=== PATIENT | male | born 1990 | race Caucasian/White ===

== ENCOUNTER 2021-09-05 10:52 | Emergency (ER) | payer OTHER, SELFPAY ==
[2021-09-05 11:10] VITALS: BP 160/108; PULSE 76; RESP 18; TEMP 36.8; O2SAT 100; BMI 43.6
--- NOTE | 2021-09-05 11:39 | HMH.EDUTC ---
[facility] [place]ression: Elevated blood pressure reading Disposition: Home, Self-Care Condition on Discharge: Good Instructions: Treatments for High Blood Pressure: More Than Just Taking a Pill, Recommendations to Help Prevent High Blood Pressure, Hypertension (Alternative Therapy) Additional Instructions: Eat a low salt low fat diet this may help with weight loss and lowering of blood pressure Return if needed Follow up with Family Doctor if no improvement or immediately if any worsening of symptoms Straight to ER if any life threatening symptoms Call Doctor office daily to see if they have had any new patient cancelations Prescriptions: hydroCHLOROthiazide [HCTZ 12.5mg cap] 12.5 mg PO DAILY 7 Days #14 cap Transmission Status: Received by [id number] Referrals: Provider,Suki, [Primary Care Provider] - Carlin Wells JR, MD [Referring] - As needed (follow up as scheduled) Time of Disposition: 14:38 Medical Decision Making - Sundeep Inquiry Pt receiving controlled substance: No Sundeep was queried for this patient: No Vital Signs: 09/05/21 11:10 09/05/21 14:40 Temperature 98.3 F 98.3 F Temperature Source Oral Pulse Rate 76 Pulse Rate [Right Brachial] 76 Respiratory Rate 18 18 Blood Pressure 160/108 H Blood Pressure [Right Arm] 160/108 H Blood Pressure Mean [Right Arm] 125 Blood Pressure Source [Right Arm] Manual Cuff/ Auscultation Blood Pressure Position [Right Arm] Sitting 02 Sat by Pulse Oximetry 100 Oxygen Delivery Method Room Air - Lab Data Lab Results 09/05/21 13:05: WBC 9.1, RBC 5.17, Hgb 14.8, Hct 43.9, MCV 84.9, MCH 28.6, MCHC 33.7, RDW 13.7, Plt Count 400, MPV 8.2, Neut % (Auto) 74.7, Lymph % (Auto) 15.9, [place] % (Auto) 5.2, Eos % (Auto) 3.4, Baso % (Auto) 0.9, Neut # (Auto) 6.8, Lymph # (Auto) 1.4, [place] # (Auto) 0.5, Eos # (Auto) 0.3, Baso # (Auto) 0.1 09/05/21 13:05: Sodium 142, Potassium 3.6, Chloride 107, Carbon Dioxide 26, Anion Gap 12.6, BUN 13, Creatinine 0.70, Estimated Creat Clear 181, Estimated GFR 133, Est GFR ( Amer) 161, Glucose 98, Calcium 9.1, Total Bilirubin 0.3, AST 33, ALT 28, Alkaline Phosphatase 94, Troponin I < 0.01, Total Protein 7.5, Albumin 4.4, Globulin 3.1, Albumin/Globulin Ratio 1.4 Result diagrams: 09/05/21 13:05 09/05/21 13:05 Orders (Tests/Meds): ED MEDICATIONS Discontinued Medications Generic Name Dose Route Start Last Admin Trade Name Yolie PRN Reason Stop Dose Admin Acetaminophen 650 mg 09/05/21 14:11 09/05/21 14:16 Acetaminophen 325mg Tab PO 09/05/21 14:12 650 mg ONCE ONE Administration - Radiology Data #1 Image(s): Chest Image Reviewed: Yes I have reviewed radiologist's interpretation No acute findings. - ECG Data Tracing #1 I reviewed this ECG and interpreted as documented below: ECG initial impression date: 09/05/21 ECG initial impression time: 12:20 Normal Sinus Rhythm: Yes Additional Comments: EKG discussed and reviewed by ED physician Medical Decision Narrative: Patient having symptomatic elevation of blood pressure with no previous diagnosis or treatment reports been watching blood pressure for the last couple of weeks States that last night he had blurry vision and headache and they checked his blood pressure and it was elevated and he called PCP this morning when he was feeling swimmy headed and having headache and they told him to come here Due to patient symptoms with HTN patient discussed with patient and recommended that patient be transferred to the ED for further evaluation and treatment and patient agreed Called ED spoke with Paola Dunham RN and report given no available beds at this time Patient will be moved when room available Patient resting on exam table IV established and EKG done and given to ER physician patient still complaining of headache and still awaiting room assignment While waiting on bed in the ED patient wanting to get a shot for his hea
--- NOTE | 2021-09-05 12:20 | ECG_ITS ---
APPROVED REPORT Exam: Resting ECG HR:80 bpm ECG Measurements Heart Rate 80 AXES TN 178 P 41 QRSd 100 QRS 13 QT 392 T 20 QTc 452 Conclusion Normal sinus rhythm Normal ECG Electronically signed by : Cooper Wills MD 09/05/2021 20:32:27
--- NOTE | 2021-09-05 12:26 | XR_ITS ---
PROCEDURE: XR CHEST 2V CLINICAL HISTORY: HIGH BP COMPARISON: No exams were available for comparison FINDINGS: The cardiomediastinal silhouette and pulmonary vascularity are within normal limits. The lungs are clear without infiltrates, suspicious nodules, or pleural effusions. Calcified granuloma in the lingula. Mild degenerative changes in the thoracic spine. IMPRESSION: No acute findings. Dictated by: Dayne Cerda MD 09/05/2021 12:50 Dayne Cerda MD in [place] 09/05/2021 12:50
[2021-09-05 13:25] LABS: Basophils # 0.1 K/mm3 (0-0.2); Basophils % 0.9 % (0.1-2.0); Eosinophils # 0.3 K/mm3 (0.0-0.4); Eosinophils % 3.4 % (0.1-12.0); Hematocrit 43.9 % (42.0-52.0); Hemoglobin 14.8 g/dL (14.1-18.0); Lymphocytes # 1.4 K/mm3 (0.7-4.5); Lymphocytes % 15.9 % (10-50); Mean Corpuscular HGB Conc 33.7 g/dL (31.8-35.4); Mean Corpuscular Hemoglobin 28.6 pg (27.0-31.2); Mean Corpuscular Volume 84.9 fl (80-94); Mean Platelet Volume 8.2 fl (7.4-10.4); Monocytes # 0.5 K/mm3 (0.1-1.0); Monocytes % 5.2 % (1.7-9.3); Neutrophils # 6.8 K/mm3 (1.8-7.8); Neutrophils % 74.7 % (37.0-80.0); Platelet Count 400 K/mm3 (142-424); Red Blood Count 5.17 M/mm3 (4.60-6.20); Red Cell Distribution Width 13.7 % (11.5-17.5); White Blood Count 9.1 K/mm3 (4.8-10.8)
[2021-09-05 13:26] LABS: Chloride 107 mmol/L (98-107); Potassium 3.6 mmoL/L (3.5-5.1); Sodium 142 mmol/L (136-145)
[2021-09-05 13:29] LABS: Alanine Aminotransferase 28 U/L (12-78); Albumin Level 4.4 g/dl (3.5-5.0); Albumin/Globulin Ratio 1.4 (1.1-1.8); Alkaline Phosphatase 94 U/L (38-126); Anion Gap 12.6 mEq/L (5-15); Aspartate Amino Transferase 33 U/L (17-59); Bilirubin,Total 0.3 mg/dl (0.2-1.3); Blood Urea Nitrogen 13 mg/dl (9-20); Carbon Dioxide 26 mmol/L (22.0-30.0); Creatinine Clearance Estimated 181 mL/min (50-200); Estimated Glomerular Filt Rate 133 ml/min (>60); GFR (African American) 161 ML/MIN (>60); Globulin 3.1 g/dL (1.3-3.2); Total Protein,Serum 7.5 g/dl (6.3-8.2)
[2021-09-05 13:30] LABS: Calcium 9.1 mg/dl (8.4-10.2); Glucose 98 mg/dl (74-100)
[2021-09-05 13:50] LABS: Troponin I < 0.01 ng/ml (0.00-0.034)
[2021-09-05 14:40] VITALS: BP 148/96; PULSE 76; RESP 18; TEMP 36.8; O2SAT 100
== END 2021-09-05 14:50 | disposition home or self-care (01) ==
PROVIDERS: Emergency Provider Nurse Practitioner
DX: R51.9 Headache, unspecified (principal); R03.0 Elevated blood-pressure reading, without diagnosis of hypertension
CPT/HCPCS: 71046; 80053; 84484; 85025; 93005; 99202; G0463

== ENCOUNTER 2022-01-07 09:03 | Emergency (ER) | payer OTHER, SELFPAY ==
[2022-01-07 09:04] VITALS: BP 148/88; PULSE 73; RESP 20; TEMP 36.7; O2SAT 98; BMI 44.9
[2022-01-07 09:47] LABS: UTC Influenza A Antigen Negative (Negative); UTC Influenza B Antigen Negative (Negative)
--- NOTE | 2022-01-07 09:59 | HMH.EDUTC ---
[facility] [place]: Viral syndrome Disposition: Home, Self-Care Condition on Discharge: Good Instructions: Diarrhea, Nausea and Vomiting-Adult Additional Instructions: *Monitor Temp, Over the counter Motrin or Tylenol as directed/as needed Tylenol every 4 hours and Motrin every 6 hours (as long as your family doctor has told you that you can take it) for fever or pain. and straight to ER if unable to lower temp less than 101.0 after medication given *Warm salt water gargles may help to soothe the throat *Throat Lozenges *Warm fluids like tea with honey may help to soothe the throat *Sleep elevated *Humidifier/Vaporizer *Drink extra fluids with and between meals. If you have difficulty drinking, try very small amounts of water or suck on ice chips. ? Avoid fruit juices, as these do not replace minerals and can actually increase diarrhea. ? Children and adults can use sports drinks to replenish electrolytes. Younger children and infants should use products formulated for children, like oral rehydration solutions. ? Eat food in small amounts and let your stomach recover. ? Get lots of rest. You may feel tired or weak. ? No greasy or fried foods for the next 24-48 hours BRAT diet Bananas Rice Apples and [place] ? Make sure to drink plenty of liquids ? Return if needed ? Straight to ER if any life threatening symptoms ? Zofran as prescribed ? Follow up with family doctor in the next 48-72 hours if no improvement or any worsening of symptoms Follow up IMMEDIATELY for new or worsening symptoms or no Noticeable improvement over the next 48-72 hours. 911 for difficulty breathing or swallowing Prescriptions: Ondansetron [Zofran 4mg ODT] 4 mg PO TIDP PRN #10 tab PRN Reason: Nausea Transmission Status: Pending to [id number] Referrals: Provider,Referral, MD [Primary Care Provider] - As needed Forms: Work/School Release Time of Disposition: 10:11 Medical Decision Making - Sundeep Inquiry Pt receiving controlled substance: No Sundeep was queried for this patient: No Vital Signs: 01/07/22 09:04 Temperature 98.1 F Temperature Source Oral Pulse Rate [Right Radial] 73 Respiratory Rate 20 Blood Pressure [Right Arm] 148/88 H Blood Pressure Mean [Right Arm] 108 Blood Pressure Source [Right Arm] Automatic Cuff Blood Pressure Position [Right Arm] Sitting 02 Sat by Pulse Oximetry 98 Oxygen Delivery Method Room Air - Lab Data Lab results reviewed: Yes: I reviewed the patient's lab results. Lab Results 01/07/22 09:23: Influenza Type A Ag Negative, Influenza Type B Ag Negative [facility] [place] - General Stated complaint: nausea, vomiting, diarrhea Time Seen by Provider: 01/07/22 09:59 Mode of Arrival: EMS Source of Information: Patient Limitations: No Limitations Description of Symptoms (Recalled from Triage Doc. by RN): Pt stated that it could be the flu, fever, chills, body aches, runny nose. His son has the flu A before. This has been going on since yesterday. HEENT Symptoms (Recalled from RN notes): Yes Resp Symptoms (Recalled from RN notes): No Skin Symptoms (Recalled from RN notes): No MS Symptoms (Recalled from RN notes): No Functional Status (Recalled from RN notes): n/a - History of Present Illness Provider Complaint: Patient states that his son had flu last week States that for the last couple of days she has been having body aches, chills, N/V/D States that over the weekend it was worse and he is feeling a little better today but still feeling achy so he came in - Related Data Previous Rx's Medication Instructions Recorded hydroCHLOROthiazide [HCTZ 12.5mg 12.5 mg PO DAILY 7 Days #14 cap 09/05/21 cap] Ondansetron [Zofran 4mg ODT] 4 mg PO TIDP PRN #10 tab 01/07/22 Allergies Allergy/AdvReac Type Severity Reaction Status Date / Time No Known Allergies Allergy Verified 01/07/22 09:56 - Worker's Comp Is this a Worker's Comp case?: No [facility] History - H
[2022-01-07 10:27] VITALS: BP 148/88; PULSE 73; RESP 20; TEMP 36.7; O2SAT 98
== END 2022-01-07 10:27 | disposition home or self-care (01) ==
PROVIDERS: Emergency Provider Nurse Practitioner
DX: B34.9 Viral infection, unspecified (principal); R11.2 Nausea with vomiting, unspecified; R51.9 Headache, unspecified
CPT/HCPCS: 87804; 99212; G0463